=== PATIENT | male | born 1985 ===

== ENCOUNTER 2018-07-19 17:57 | Emergency (ER) | payer MEDICAID ==
[~2018-07-19] VITALS: Ht 185.4 cm; Wt 70.5 kg
[2018-07-19 18:19] VITALS: BP 141/74; Ht 185.4 cm; Wt 70.5 kg
[2018-07-19] MEDS ORDERED: ABILIFY MAINTE400 MG IM (18:20)
[2018-07-19 19:05] LABS: BASOPHILS 0.3 % (0-2); EOSINOPHILS 1.2 % (0-7); HEMOGLOBIN 16.5 g/dL (13.5-17.5); IMMATURE GRANULOCYTES 0.4 % (0-5); LYMPHOCYTES 29.7 % (15-50); MCHC 35.1 g/dL (31.0-37.0); MCV 91.3 fL (80.0-100.0); MEAN PLATELET VOLUME 9.6 fL (7.4-10.4); MONOCYTES 9.3 % (2-11); NEUTROPHILS 59.1 % (40-80); PLATELET COUNT 206 10x3/uL (130-400); RBC 5.15 10x6/uL (4.20-6.10); RDW 12.5 % (11.5-14.5); WBC 10.4 10x3/uL (4.8-10.8)
[2018-07-19 19:06] LABS: APPEARANCE CLEAR (CLEAR); BILIRUBIN NEGATIVE (NEGATIVE); COLOR YELLOW (YELLOW); GLUCOSE NEGATIVE (NEGATIVE); KETONE NEGATIVE (NEGATIVE); NITRITE NEGATIVE (NEGATIVE); PROTEIN NEGATIVE (NEGATIVE); UROBILINOGEN NORMAL (NORMAL)
[2018-07-19 19:18] LABS: UDS - AMPHET NEGATIVE QUAL (NEGATIVE); UDS - BARB NEGATIVE QUAL (NEGATIVE); UDS - BENZO NEGATIVE QUAL (NEGATIVE); UDS - COCAINE NEGATIVE QUAL (NEGATIVE); UDS - OPIATE NEGATIVE QUAL (NEGATIVE); UDS - PCP NEGATIVE QUAL (NEGATIVE); UDS - THC NEGATIVE QUAL (NEGATIVE)
[2018-07-19 19:33] LABS: ALBUMIN 3.5 g/dL (3.4-5.0); ALKALINE PHOSPHATASE 89 U/L (46-116); ALT (SGPT) 30 U/L (10-68); CALC OSMOLALITY 282 mosm/kg (275-300); CALCIUM 8.8 mg/dL (8.5-10.1); CARBON DIOXIDE 30.6 mmol/L (21.0-32.0); CHLORIDE - SERUM 105 mmol/L (98-107); CREATININE - SERUM 0.9 mg/dL (0.6-1.3); GLUCOSE 111 mg/dL (74-106); POTASSIUM - SERUM 4.3 mmol/L (3.5-5.1); PROTEIN - SERUM 6.6 g/dL (6.4-8.2); SODIUM 142 mmol/L (136-145); UREA NITROGEN 11 mg/dL (7-18); eGFR NON AFRICAN AMERICAN > 90 mL/min (90-120)
== END 2018-07-19 20:30 | disposition home or self-care (01) ==
LOC: D.ER 17:57
PROVIDERS: Emergency Medicine
DX: R45.4 Irritability and anger (principal); F41.9 Anxiety disorder, unspecified